=== PATIENT | female | born 1960 | race Two or more races ===

== ENCOUNTER 2022-08-23 13:15 | Emergency (ER) | payer OTHER ==
[~2022-08-23] VITALS: Ht 157.5 cm; Wt 61.2 kg
[2022-08-23] MEDS ORDERED: ZITHROMAX500 MG PO (18:08)
== END 2022-08-23 18:10 | disposition home or self-care (01) ==
LOC: ER 13:15
DX: R07.9 Chest pain, unspecified (principal); B34.9 Viral infection, unspecified